=== PATIENT | male | born 1965 | race Caucasian/White ===

== ENCOUNTER 2016-07-30 11:51 | Emergency (ER) | payer SELFPAY ==
[~2016-07-30] VITALS: Ht 180.3 cm; Wt 82.0 kg
[~2016-07-30 11:51] MED LIST: ALBU0.086 INH; ALBU2.5I INH; ALBU8I INH; AZIT250T43 PO; BACT800T5 PO; CEPH500C3 PO; PRED20 PO
[2016-07-30 11:52] VITALS: BP 142/73; PULSE 83; RESP 17; TEMP 98.3; O2SAT 93
[2016-07-30] MEDS ORDERED: methylPREDNISolone SOD SUCC 125 MG/2 ML VIAL IVP ONE (13:00)
[2016-07-30 13:12] VITALS: BP 113/67; PULSE 74; RESP 20; O2SAT 96
--- NOTE | 2016-07-30 13:12 | RADRPT ---
EXAM DATE/TIME: 07/30/2016 12:48 [facility] COMPARISON: No previous studies available for comparison. INDICATIONS : Wheezing MEDICAL HISTORY : Chronic obstructive pulmonary disease. Asthma SURGICAL HISTORY : None. ENCOUNTER: Initial ACUITY: 1 day PAIN SCORE: 9/10 LOCATION: Bilateral chest FINDINGS: A single view of the chest demonstrates the lungs to be symmetrically aerated without evidence of mas s, infiltrate or effusion. The cardiomediastinal contours are unremarkable. Osseous structures are intact. CONCLUSION: No evidence of acute cardiopulmonary disease. Vincent Mckeon MD on July 30, 2016 at 13:11 Board Certified Radiologist. This report was verified electronically.
[2016-07-30] MEDS: RESP: ALBUTEROL 2.5 MG/3 ML NEB (SCH) INH (13:23)
--- NOTE | 2016-07-30 13:45 | PD ---
HPI Chief Complaint: Respiratory Symptoms Time Seen by Provider: 13:41 Travel History International Travel<30 days: No Contact w/Intl Traveler<30days: No Traveled to known affect area: No History of Present Illness HPI 51-year-old male that presents to the ED for eval of possible COPD exacerbation as well as right lower leg pain. Per patient his had COPD for a couple years now. Per patient he still smokes on and off. Per patient he takes. As well as rescue inhalers but states that for the past 3 days he symptoms have been worsening with time or cough or runny nose. Per patient he feels short of breath and he has pain on his chest only when he coughs as well as in his back. Per patient the pain is 7 out of 10 and is achy. Only gets worse with cough. Nothing seems to make it better. Per patient his inhalers do seem to help somewhat but he still has the symptoms and his concern. Also he states and since yesterday his been having pain on the medial aspect of his right groin and leg. Per patient she's never had that before and he says that this feels different than just a muscle. He denies taking any blood thinners or history of blood clots. No recent travel. Per patient the pain in this area is 6 out of 10 and comes and goes. He denies any discoloration. No allergies to medication. Has not taken anything for this other than inhalers. PFSH Past Medical History COPD: Yes Respiratory: Yes (COPD) Social History Alcohol Use: Yes (rare) Tobacco Use: Yes (1 PACK) Substance Use: Yes (cocaine) Allergies-Medications (Allergen,Severity, Reaction): Coded Allergies: No Known Allergies (Unverified , 07/10/15) Reported Meds & Prescriptions Reported Meds & Active Scripts Active Diclofenac Sodium DR (Diclofenac Sodium) 75 Mg Tabdr 75 Mg PO BID PRN Azithromycin 250 Mg Tab 250 Mg PO DIRECTED Take 2 tabs (500 mg) on day 1 then 1 tab daily x 4 days. Prednisone 20 Mg Tab 20 Mg PO BID Proair Hfa 8.5 GM Inh (Albuterol Sulfate) 90 Mcg/Act Aer 2 Puff INH Q4-6H PRN 108 mcg/actuation Resp: Albuterol 2.5 Mg/3 Ml Neb (Albuterol Sulfate) 2.5 Mg/3 Ml Nebu 2.5 Mg INH Q4H PRN Review of Systems General / Constitutional: No: Fever, Chills, Weight Gain, Weight Loss, Other Eyes: No: Diploplia, Blurred Vision, Photophobia, Drainage, Redness, Foreign Body Sensation, Pain, Tearing, Blind Spots, Visual changes, Blindness, Other HENT: Positive: Rhinitis, Congestion, No: Headaches, Vertigo, Lightheadedness , Sore Throat, Rhinorrhea, Nosebleed, Neck Stiffness, Neck Pain, Masses, Gingival Bleeding, Dental Difficulties, Ear Discharge, Earache, Other Cardiovascular: Positive: Chest Pain or Discomfort, No: Palpitations, Irregular Rhythm, Tachycardia, Diaphoresis, Syncope, Dyspnea on exertion, Varicosities, Edema, Cyanosis, Varicosities, Phlebitis, Claudication, Other Respiratory: Positive: Cough, Shortness of Breath, Wheezing, No: Sneezing, Orthopnea, Hemoptysis, Stridor, Night Sweats, Pleuritic Pain, Other Gastrointestinal: No: Nausea, Vomiting, Diarrhea, Abdominal Pain, Hematemesis, Hematochezia, Constipation, Changes in Bowel Habits, Indigestion, Dysphagia, Loss of Appetite, Other Genitourinary: No: Urgency, Frequency, Dysuria, Nocturia, Hematuria, Decreased Urinary Output, Oliguria, Hesitancy, Dribbling, Incontinence, Pelvic Pain, Flank Pain, Dyspareunia, Discharge, Dysmenorrhea, Menorrhagia, Metorrhagia, Vaginal Bleeding, Other Musculoskeletal: Positive: Pain, No: Myalgias, Arthralgias, Limited ROM, Weakness, Cramping, Edema, Atrophy, Other Skin: No Rash, No Itching, No Dryness, No Lumps, No Hives, No Change in Pigmentation, No Change in nails, No Alopecia, No Lesions, No Breast Lumps, No Breast Tenderness, No Breast Swelling, No Other Neurologic: No: Weakness, Dizziness, Syncope, Focal Abnormalities, Coordination Problem, Tremor, Ataxia, Headache, Change in Mentation, Slurred Speech, Paresthesia, Incontinence, Seizures, Sensory Disturbance, Other Psychiatric: No: Anxiety, Depression, Suicidal Ideations, Disorder of Thought, Mood Disorder, Substance Abuse, Homicidal Ideation, Other Endocrine: No: Heat Intolerance, Cold Intolerance, Polyuria, Polydipsia, Other Hematologic/Lymphatic: No: Easy Bruising, Lymph Node Enlargement, Other Physical Exam Narrative GENERAL: Well-nourished, well-developed patient in no apparent distress. SKIN: Warm and dry. HEAD: Atraumatic. Normocephalic. EYES: Pupils equal and round reactive to light and accommodation. No scleral icterus. No injection or drainage. ENT: No nasal bleeding or discharge. Mucous membranes pink and moist. TMs are clear with no sign of infection or perforation. No mastoid tenderness. Ear canals are intact bilaterally. No lymphadenopathy. Nostril mucosa is red and moist with clear mucus noted. No sinus tenderness to palpation noted. Tonsils are not enlarged or swollen. No ulvua Deviation. Tongue is midline. NECK: Trachea midline. No JVD. No meningeal signs noted CARDIOVASCULAR: Regular rate and rhythm. RESPIRATORY: No accessory muscle use. Patient has wheezing in all lung vogt. Breath sounds equal bilaterally. GASTROINTESTINAL: Abdomen soft, non-tender, nondistended. Hepatic and splenic margins not palpable. MUSCULOSKELETAL: Extremities without clubbing, cyanosis, or edema. No obvious deformities. NEUROLOGICAL: Awake and alert. No obvious cranial nerve deficits. Motor grossly within normal limits. Five out of 5 muscle strength in the arms and legs. Normal speech. PSYCHIATRIC: Appropriate mood and affect; insight and judgment normal. Data Data Last Documented VS Vital Signs Date Time Temp Pulse Resp B/P Pulse Ox O2 Delivery O2 Flow Rate FiO2 07/30/16 13:12 74 20 113/67 96 Room Air 07/30/16 11:52 98.3 Orders Electrocardiogram (07/30/16 ) Chest, Single Ap (07/30/16 12:53) Ecg Monitoring (07/30/16 12:53) Iv Access Insert/Monitor (07/30/16 12:53) Oximetry (07/30/16 12:53) Oxygen Administration (07/30/16 12:53) Methylprednisolone So Succ Inj (Solumedr (07/30/16 13:00) Albuterol Neb (Albuterol Neb) (07/30/16 13:00) Us Leg Venous Doppler (07/30/16 12:53) MDM Medical Decision Making Medical Screen Exam Complete: Yes Emergency Medical Condition: Yes Medical Record Reviewed: Yes Interpretation(s) Last Impressions Lower Extremity Ultrasound 07/30/16 1763 Signed Impressions: Service Date/Time: Saturday, July 30, 2016 13:52 - CONCLUSION: No DVT of the right lower extremity. Vincent Mckeon MD Chest X-Ray 07/30/16 5033 Signed Impressions: Service Date/Time: Saturday, July 30, 2016 12:48 - CONCLUSION: No evidence of acute cardiopulmonary disease. Vincent Mckeon MD Differential Diagnosis Pneumonia versus asthma exacerbation versus COPD exacerbation versus DVT Narrative Course 50-year-old male that presents to the ED for evaluation of COPD exacerbation as well as possible blood clot. Patient was properly examined and was found to have signs and symptoms consistent with COPD exacerbation. Patient was given breathing treatments. Chest x-ray was done. Solumedrol IV. Ultrasound was ordered for the leg. Chest x-ray was negative for acute disease. Patient was reassured. Patient does feel improved and wheezing has improved. At this time early this is COPD exacerbation. Patient will be sent home with prescriptions for prednisone, albuterol inhaler, azithromycin and he was console on stopping all smoking. In regards to the ultrasound this showed negative. Patient was reassured. I do not believe that this is a DVT and this time. Patient does have pulses. Possible muscle strain. I recommend diclofenac sodium for pain. Patient was told that if anything worsens she is to come back. Follow-up with PCP. Stop smoking. Diagnosis Primary Impression: COPD exacerbation Additional Impression: Right leg pain Patient Instructions: General Instructions Additional Instructions: Take medications as prescribed. Follow-up with PCP. Stop smoking. See ED for any worsening symptoms. Med/Other Pt SpecificInfo: Prescription(s) given Scripts Diclofenac Sodium DR 75 Mg Tabdr75 Mg PO BID PRN (PAIN SCALE 1 TO 10) #20 TAB Prov:Meño Beck MD 07/30/16 Azithromycin 250 Mg Hdg260 Mg PO DIRECTED #6 TAB Take 2 tabs (500 mg) on day 1 then 1 tab daily x 4 days. Prov:Meño Beck MD 07/30/16 Prednisone 20 Mg Tab20 Mg PO BID #10 TAB Prov:Meño Beck MD 07/30/16 Albuterol 8.5 GM Inh (Proair Hfa 8.5 GM Inh)90 Mcg/Act Aer2 Puff INH Q4-6H PRN ( SHORTNESS OF BREATH) #1 INHALER 108 mcg/actuation Prov:Meño Beck MD 07/30/16 Disposition: 01 DISCHARGE HOME Condition: Stable Mango Meier Jul 30, 2016 13:45
--- NOTE | 2016-07-30 14:12 | RADRPT ---
EXAM DATE/TIME: 07/30/2016 13:52 [facility] COMPARISON: No previous studies available for comparison. INDICATIONS : Right leg swelling and pain. MEDICAL HISTORY : Chronic obstructive pulmonary disease. Substance use. SURGICAL HISTORY : No known surgical history. ENCOUNTER: Initial ACUITY: 1 day PAIN SCORE: 10/10 LOCATION: Right leg. FEMORAL VEIN Proximal YesMid YesDistal Yes TECHNIQUE: Venous ultrasound of the leg was performed from the inguinal ligament to the proximal calf. Real-maddy e, color Doppler and spectral tracing, compression and augmentation techniques were used. FINDINGS: There is normal compressibility of the deep venous system from the inguinal region to the proximal ca lf. No echogenic clot is seen in the lumen of the common femoral, femoral, popliteal, and posterior tibial veins. There is a normal response of the venous system to proximal and distal augmentation an d respiration. CONCLUSION: No DVT of the right lower extremity. Vincent Mckeon MD on July 30, 2016 at 14:09 Board Certified Radiologist. This report was verified electronically.
[2016-07-30] MEDS ORDERED: PRED20 PO (14:30)
[2016-07-30] MEDS ORDERED: AZIT250T3 PO (14:30)
[2016-07-30] MEDS ORDERED: ALBUAER3 INH (14:30)
[2016-07-30] MEDS ORDERED: DICL75TA PO (14:30)
[2016-07-30] MEDS ORDERED: CIPR-9 PO (15:01)
--- NOTE | 2016-07-31 14:15 | EKG ---
Date Performed: 07/30/2016 Time Performed: 12:08:14 PTAGE: 51 years EKG: Sinus rhythm WITH SHORT ID INTERVAL Compared to the previous tracing no significant change BORDERLINE ECG PREVIOUS TRACING : 03/10/2016 12.10 DOCTOR: Yoav Brantley Interpretating Date/Time 07/31/2016 14:14:34
== END 2016-07-30 15:15 | disposition home or self-care (01) ==
LOC: NEPE 11:51
DX: J44.1 Chronic obstructive pulmonary disease with (acute) exacerbation (principal); M79.604 Pain in right leg; F17.210 Nicotine dependence, cigarettes, uncomplicated
CPT/HCPCS: 71010; 93005; 93971; 94640; 94664; 96374; 99284; J2930; J7613

== ENCOUNTER 2016-08-30 12:06 | Emergency (ER) | payer SELFPAY ==
[~2016-08-30] VITALS: Ht 180.3 cm; Wt 83.0 kg
[~2016-08-30 12:06] MED LIST changes: -ALBU0.086 INH; -ALBU8I INH; +ALBUAER3 INH; -AZIT250T43 PO; -BACT800T5 PO; -CEPH500C3 PO; +CIPR-9 PO; +DICL75TA PO
[2016-08-30 12:09] VITALS: BP 187/68; PULSE 85; RESP 17; TEMP 97.7; O2SAT 95
[2016-08-30] MEDS ORDERED: BACT800T5 PO (12:31)
[2016-08-30] MEDS ORDERED: IBUP800T23 PO (12:31)
[2016-08-30] MEDS ORDERED: CEPH-460 PO (12:31)
--- NOTE | 2016-08-30 12:31 | PD ---
HPI Chief Complaint: Skin Problem Time Seen by Provider: 12:29 Travel History International Travel<30 days: No Contact w/Intl Traveler<30days: No Traveled to known affect area: No History of Present Illness HPI 51-year-old male presents emergency Department with complaint of a possible bug bite to the back of his right scalp that started about 3 days ago. He says he' s been working in an old house and thinks that maybe he got bit by something. Denies fever, chills, nausea, vomiting. This area is very painful and tender. Says he thinks it's mainly draining some fluid. Denies being up-to-date on his tetanus vaccination. Has not taken any medications or tried any treatments to alleviate symptoms. No known allergies. No other modifying factors or associated signs and symptoms. PFSH Past Medical History COPD: Yes Respiratory: Yes (COPD) Social History Alcohol Use: Yes (rare) Tobacco Use: Yes (1 PACK) Substance Use: Yes (cocaine) Allergies-Medications (Allergen,Severity, Reaction): Coded Allergies: No Known Allergies (Unverified , 08/30/16) Reported Meds & Prescriptions Reported Meds & Active Scripts Active Keflex (Cephalexin) 500 Mg Cap 500 Mg PO Q6H 10 Days Bactrim DS (Sulfamethoxazole-Trimethoprim) 800-160 Mg Tab 1 Tab PO BID 10 Days Ibuprofen 800 Mg Tab 800 Mg PO Q6HR PRN Cipro (Ciprofloxacin HCl) 500 Mg Tab 500 Mg PO BID [address] (Diclofenac Sodium) 75 Mg Tabdr 75 Mg PO BID PRN Prednisone 20 Mg Tab 20 Mg PO BID Proair Hfa 8.5 GM Inh (Albuterol Sulfate) 90 Mcg/Act Aer 2 Puff INH Q4-6H PRN 108 mcg/actuation Resp: Albuterol 2.5 Mg/3 Ml Neb (Albuterol Sulfate) 2.5 Mg/3 Ml Nebu 2.5 Mg INH Q4H PRN Review of Systems Except as stated in HPI: all other systems reviewed are Neg Physical Exam Narrative GENERAL: Well-nourished, well-developed male patient, in no acute distress; afebrile, nontoxic-appearing SKIN: There is an indurated area to the right posterior scalp which measures about 1.5 cm in diameter. It is fluctuant and there is purulent drainage noted. There is a zone of inflammation around it but no lymphangitis. HEAD: Atraumatic. Normocephalic. EYES: Pupils equal and round. No scleral icterus. No injection or drainage. ENT: Mucosa pink and moist. Airway patent. NECK: Trachea midline. No lymphadenopathy. CARDIOVASCULAR: Regular rate. RESPIRATORY: No accessory muscle use. GASTROINTESTINAL: Flat. MUSCULOSKELETAL: No obvious deformities. No clubbing. No cyanosis. No edema. NEUROLOGICAL: Awake and alert. Oriented 3. No obvious cranial nerve deficits. Motor grossly within normal limits. Normal speech. PSYCHIATRIC: Appropriate mood and affect; insight and judgment normal. Data Data Last Documented VS Vital Signs Date Time Temp Pulse Resp B/P Pulse Ox O2 Delivery O2 Flow Rate FiO2 08/30/16 12:09 97.7 85 17 187/68 95 Orders Wound Culture And Gram Stain (08/30/16 12:31) Tetanus/Diphtheria Tox Adult (Tetanus/Di (08/30/16 12:45) Ibuprofen (Motrin) (08/30/16 12:45) MDM Medical Decision Making Medical Screen Exam Complete: Yes Emergency Medical Condition: Yes Medical Record Reviewed: Yes Differential Diagnosis Abscess, bug bite, folliculitis Narrative Course 51-year-old male physical exam consistent with right, posterior scalp abscess. The abscess is draining purulent drainage. Wound culture pending. Tetanus updated in the ER. Ibuprofen ordered and administered in the ER. Patient is afebrile and nontoxic-appearing. Denies fever, chills, nausea, vomiting. Ibuprofen, Keflex, Bactrim prescribed for home. Patient verbalizes understanding and agreement with treatment plan. Patient is medically cleared and stable for discharge. Discussed reasons to return to the emergency department. Instructed patient to follow up with primary care provider. Patient agrees with treatment plan. The patients vital signs are stable and the patient is stable for outpatient follow-up and treatment. Patient discharged home, stable and in no acute distress. Diagnosis Primary Impression: Scalp abscess Referrals: Primary Care Physician Patient Instructions: Abscess (ED), Abscess Follow-up (ED), General Instructions Departure Forms: Tests/Procedures, Work Release Enter return to work date: Aug 31, 2016 Additional Instructions: Complete full course of antibiotics Warm compresses to the affected area Keep area clean and dry Ibuprofen or Tylenol as directed and as needed for pain and inflammation Follow-up with primary care provider Return to emergency department immediately with worsening of symptoms Med/Other Pt SpecificInfo: Prescription(s) given Scripts Cephalexin (Keflex)500 Mg [id number] Mg PO Q6H 10 Days Ref 0 Prov:Marta Rubio 08/30/16 Sulfamethoxazole-Trimethoprim (Bactrim DS)800-160 Mg Tab1 Tab PO BID 10 Days Ref 0 Prov:Marta Rubio 08/30/16 Ibuprofen 800 Mg Avi516 Mg PO Q6HR PRN (PAIN) #30 TAB Ref 0 Prov:Marta Rubio 08/30/16 Disposition: 01 DISCHARGE HOME Condition: Stable Marta Rubio Aug 30, 2016 12:31
[2016-08-30] MEDS ORDERED: TETANUS/DIPHTHERIA TOXOID ADULT 0.5 ML VIAL IM ONE (12:45)
[2016-08-30] MEDS ORDERED: IBUPROFEN 800 MG TAB PO ONE (12:45)
== END 2016-08-30 12:56 | disposition home or self-care (01) ==
LOC: NEPK 12:06
DX: L02.811 Cutaneous abscess of head [any part, except face] (principal); B95.62 Methicillin resistant Staphylococcus aureus infection as the cause of diseases classified elsewhere; Z23 Encounter for immunization; J44.9 Chronic obstructive pulmonary disease, unspecified; F17.210 Nicotine dependence, cigarettes, uncomplicated
CPT/HCPCS: 86403; 87070; 87186; 87205; 90471; 90714